=== PATIENT | female | born 1960 | race Caucasian/White ===

== ENCOUNTER 2020-11-18 10:31 | Outpatient (REF) | payer BC, SELFPAY ==
[2020-11-18 11:50] LABS: Hematocrit 41.6 % (37-47); Hemoglobin 13.8 g/dl (12.0-16.0); Mean Corpuscular HGB Conc 33.2 g/dl (31.0-35.0); Mean Corpuscular Hemoglobin 30.5 pg (27.0-33.0); Mean Platelet Volume 9.2 fL (9.4-12.3); Platelet Count 241 X10*3/uL (160-400); Red Blood Count 4.52 X10*6/uL (4.20-5.50); Red Cell Distribution Width 13.2 % (11.0-16.0)
[2020-11-18 11:59] LABS: White Blood Count 2.2 X10*3/uL (4.8-10.8)
[2020-11-18 12:14] LABS: Atypical Lymphs Percent Manual 2 % (0-6); Eosinophils Absolute Manual 0.1 X10*3/UL (0.0-0.8); Eosinophils Percent Manual 4 % (0-4); Lymphocytes Absolute Manual 1.3 X10*3/uL (0.6-4.8); Lymphocytes Percent Manual 59 % (20-40); Monocytes Absolute Manual 0.3 X10*3/uL (0.0-1.2); Monocytes Percent Manual 15 % (2-11); Neutrophils Percent Manual 20 % (45-73)
[2020-11-18 12:15] LABS: Platelet Estimate NORMAL (NORMAL); Platelet Morphology Comment NORMAL; RBC Morphology NOTED
[2020-11-18 12:16] LABS: Acanthocytes 1+ (0-2) /OIF; Ovalocytes 1+ (5-14) /OIF
[2020-11-18 12:26] LABS: Band Neutrophils Percent 0 % (3-5); Neutrophils Absolute Manual 0.4 X10*3/uL (2.2-7.9)
[2020-11-18 12:41] LABS: Erythrocyte Sedimentation Rate 30 MM/HR (0-20)
== END 2020-11-18 10:32 | disposition home or self-care (01) ==
LOC: HO.LAB 10:31
PROVIDERS: PCP Nurse Practitioner Family; Visit Provider Psychiatry & Neurology Neurology
DX: M79.10 Myalgia, unspecified site (principal)
CPT/HCPCS: 36415; 82550; 85007; 85025; 85027; 85652

== ENCOUNTER 2024-08-14 08:45 | Outpatient (RCR) | payer BC, SELFPAY | END 2024-10-16 14:54 | disposition home or self-care (01) | LOC: HO.OT 08:45 | PROVIDERS: PCP Nurse Practitioner Family; Visit Provider Physician Assistant Medical | DX: S52.531D Colles' fracture of right radius, subsequent encounter for closed fracture with routine healing (principal) | CPT/HCPCS: 97110; 97140; 97165; 97530 ==

== ENCOUNTER 2024-08-28 09:30 | Emergency (ER) | payer BC, SELFPAY ==
--- NOTE | ~2024-08-28 | CT_ITS ---
EXAMINATION: CT ANGIOGRAM HEAD AND NECK CLINICAL INFORMATION: Dizziness, sharp head pains, pulsatile tinnitus. 64-year-old female. COMPARISON: None available. TECHNIQUE: Noncontrast axial imaging of the head was performed. This was followed by test bolus sequences and head and neck intravenous bolus administration 70 mL of Omnipaque 350. Helical imaging was performed in the axial plane from the aortic arch to the skull vertex. A [address] head was also obtained. The data was processed at the chemical engineering technologist's workstation for generation of MIP sequences. Angled MIPs and volume rendered reformatted images were also generated at an offline 3D workstation. Stenoses are assessed in accordance with NASCET criteria unless otherwise indicated. This CT examination was performed using dose optimization techniques as appropriate, variously including the following: *Automated exposure control *Adjustment of mA and/or kV according to patient size (this includes techniques or standardized protocols for targeted exams where dose is matched to indication/reason for exam; i.e. extremities or head) *Use of iterative reconstruction technique FINDINGS: NONCONTRAST HEAD CT: There is no evidence of intracranial hemorrhage or extra-axial fluid collection. There is no mass effect, or edema. No CT evidence of acute territorial infarct. Ventricles, sulci, and cisterns are normal in size and configuration for patient age. No hydrocephalus. No midline shift. 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 Partial empty sella. Globes and orbital contents image normally. There are bilateral lens replacements. No extracranial soft tissue abnormalities. The paranasal sinuses, mastoid air cells, and tympanic cavities are normally aerated. No suspicious bony abnormalities. There are degenerative changes in the TM joints. NECK CTA: -AORTIC ARCH: Normal in caliber. Mild atheromatous calcification. Three-vessel branching pattern. -GREAT VESSEL ORIGINS: Widely patent. No stenosis. -RIGHT COMMON CAROTID ARTERY: Retropharyngeal course. Normal in caliber to the level of the bifurcation. -CERVICAL RIGHT INTERNAL CAROTID ARTERY: Retropharyngeal course proximally. Normal opacification without focal stenosis or occlusion. -LEFT COMMON CAROTID ARTERY: Normal in course and caliber to the level of the bifurcation. -CERVICAL LEFT INTERNAL CAROTID ARTERY: Normal opacification without focal stenosis or occlusion. -CERVICAL RIGHT VERTEBRAL ARTERY: Codominant. Normal in course and caliber into the skull base. -CERVICAL LEFT VERTEBRAL ARTERY: Codominant. Normal in course and caliber into the skull base. OTHER, SOFT TISSUES: -No lymphadenopathy or mass. No abnormal fluid collection or soft tissue swelling. -There is a 10 mm right thyroid nodule. No follow-up recommended. -Imaged superior mediastinal structures normal. -Imaged lung apices clear. CTA OF THE BRAIN: -INTRACRANIAL INTERNAL CAROTID ARTERIES: No focal stenosis or occlusion. -RIGHT ANTERIOR CEREBRAL ARTERY: Normal A1 segment.. Normal arborization of the distal segments. -LEFT ANTERIOR CEREBRAL ARTERY: Normal A1 segment.. Normal arborization of the distal segments. -ANTERIOR COMMUNICATING ARTERY: Normal. -RIGHT MIDDLE CEREBRAL ARTERY: Normal M1 segment of the MCA without focal stenosis or occlusion. Normal arborization of the distal segments. -LEFT MIDDLE CEREBRAL ARTERY: Normal M1 segment of the MCA without focal stenosis or occlusion. Normal arborization of the distal segments. -RIGHT VERTEBRAL ARTERY V4: Normal in course and caliber. -LEFT VERTEBRAL ARTERY V4: Normal in course and caliber. -BASILAR ARTERY: Normal without focal stenosis or occlusion. Normal appearance of the proximal superior cerebellar arteries. Normal basilar tip. -RIGHT POSTERIOR CEREBRAL ARTERY: Normal P1 segment. Normal opacification of the distal BERRY PLANTER segments. -LEFT POSTERIOR CEREBRAL ARTERY: Normal P1 segment. Normal opacification of the distal BERRY PLANTER segments. -POSTERIOR COMMUNICATING ARTERIES: Patent on the right. The left is not well seen. Normal opacification of the superior sagittal, straight, transverse, and sigmoid sinuses. No venous thrombosis. No space-occupying hemorrhage or definite evolving infarct. CT/CT angio head neck IMPRESSION: NONCONTRAST HEAD CT: 1. No evidence of intracranial hemorrhage or mass effect. No CT evidence of acute territorial infarct. CTA NECK: 1. No evidence of significant stenosis, dissection, occlusion, or aneurysm of the major cervical arterial vasculature. 2. Retropharyngeal course of the right distal CCA and proximal ICA. CTA HEAD: 1. No evidence of large vessel occlusion, significant stenosis, dissection, or aneurysm in the major intracranial arterial vasculature. 2. Patent major cortical and dural venous sinuses. Electronically signed by: Amandeep Velazco MD 08/28/2024 04:24 PM EDT
[2024-08-28 10:06] VITALS: BP 154/86; PULSE 76; RESP 20; TEMP 36.9; O2SAT 99; BMI 20.9
--- NOTE | 2024-08-28 13:34 | ED.HA ---
HPI - Headache General Chief Complaint: Headache Stated Complaint: Sharp pains in head Time Seen by Provider: 08/28/24 13:33 Source: patient, RN notes reviewed and old records reviewed Mode of arrival: ambulatory Limitations: no limitations History of Present Illness ED Provider: SARAH ANDRE PA-C HPI Narrative: 64-year-old female presents to the ED today for evaluation of intermittent left sided headache x2 weeks. Reports sharp, electric shock sensations, localized to the left side of her head that occur sporadically and last only a few seconds. she cannot determine any clear exacerbating or relieving factors. reports these shocks occur anywhere from 2-4 times daily and stop her in her tracks. She endorses associated pain/stiffness to left side of her neck. Reports her muscles feel tense in this region. She has been attributing this to carrying her 18 month old grandson more with her LUE due to recent surgery on her right wrist. Patient also reports history of tinnitus but recently has been able to hear her heartbeat in her ears when symptoms occur. She has trialed motrin without relief. Denies head injury/trauma/falls. Patient denies history of headache/migraine. Denies fever, chills, scalp tenderness, jaw claudication, nausea or vomiting. Denies blurred vision or photophobia. Reports having cataract surgery done 1.5 years ago but still has floaters and dry eyes. She takes low-dose gabapentin as needed at night for pudendal nerve pain. Related Data Previous Rx's ?Medication ?Instructions ?Recorded methocarbamol 1,000 mg tablet 1,000 mg PO TID PRN muscle spasm 3 08/28/24 days #9 tabs Allergies Allergy/AdvReac Type Severity Reaction Status Date / Time ciprofloxacin [Ciprofloxacin] Allergy Mild RASH Unverified 08/28/24 10:06 clindamycin [Clindamycin] Allergy Mild UNKNOWN Unverified 08/28/24 10:06 erythromycin base Allergy Mild RASH Unverified 08/28/24 10:06 [From Erythrocin] levofloxacin [Levofloxacin] Allergy Mild RASH Unverified 08/28/24 10:06 Penicillins Allergy Mild RASH Unverified 08/28/24 10:06 Sulfa (Sulfonamide Allergy Mild RASH Unverified 08/28/24 10:06 Antibiotics) [Sulfa (Sulfonamides)] sulfamethoxazole Allergy Mild RASH Unverified 08/28/24 10:06 [From Bactrim] trimethoprim [From Bactrim] Allergy Mild RASH Unverified 08/28/24 10:06 trovafloxacin [From Trovan] Allergy Mild RASH Unverified 08/28/24 10:06 valacyclovir [From VALTREX] Allergy Unknown RASH Unverified 08/28/24 10:06 Cephalosporins Allergy Unknown Verified 08/28/24 17:13 pseudoephedrine Allergy Anaphylaxis Verified 08/28/24 17:13 tramadol [From Ultram] Allergy Anaphylaxis Verified 08/28/24 17:12 vancomycin Allergy Hives Verified 08/28/24 17:12 hydromorphone [From Dilaudid] AdvReac Anaphylaxis Verified 08/28/24 10:07 morphine AdvReac Anaphylaxis Verified 08/28/24 10:07 Review of Systems Review of Systems: Constitutional: No fever, chills, fatigue, night sweats, weight changes ENT/Mouth: +Tinnitus. No ear pain, hearing loss, nasal congestion, sinus pain, rhinorrhea, sore throat Eyes: No eye pain, swelling, redness, vision changes, discharge, photophobia Cardio: No chest pain, palpitations, FULLER, orthopnea, peripheral edema Pulm: No SOB, cough, sputum, wheezing, dyspnea, hemoptysis GI: No nausea, vomiting, hematemesis, abdominal pain, diarrhea, constipation, hematochezia, melena : No irregular bleeding, dysuria, frequency, urgency, hesitancy, hematuria, flank pain, urinary flow changes, urinary incontinence or retention MSK: No back pain, neck pain, joint pain, myalgias Skin: No lesions, rashes Neuro: No weakness, numbness, paresthesias, LOC, dizziness, +headache Psych: No anxiety/panic, depression, SI/HI, AH/VH All other systems reviewed and are negative. Yes all other systems are reviewed and are negative [facility] Past Medical History Attestation statement: The following information was validated with the patient. Source: old records reviewed and nursing notes reviewed Physical Exam Vital Signs: Vital Signs: Last Vital Signs Temp 97.3 F 08/28/24 18:07 Pulse 73 08/28/24 18:07 Resp 16 08/28/24 18:07 BP 133/91 H 08/28/24 18:07 Pulse Ox 98 08/28/24 18:07 O2 Del Method Room Air 08/28/24 18:07 BMI result Body Mass Index 20.9 hypertensive, afebrile General: Well appearing, in no acute distress. Skin: Warm, dry, intact. No rashes or lesions. Head: Normocephalic, atraumatic. no scalp tenderness, no palpable temporal aa. no ttp along distribution of facial nerve. EENT: Hearing is intact b/l. Conjunctiva clear. PERRLA. EOM intact w/o entrapment. Moist mucous membranes.? Neck: Supple without LAD. Cardiac: Chest wall symmetric. RRR. Lungs: Normal respiratory effort without accessory muscle use. CTA bilaterally. ? Ext: Upper and lower extremities atraumatic, without tenderness, deformity, swelling or erythema. Neuro: AOx3. Normal speech. NIH 0. no facial droop, slurred speech, or pronator drift. finger to nose and heel to walker intact. ambulating with steady gait. Course Course Course Narrative: CBC showing leukopenia to 1.9 - appears to be around patient's baseline. lymphocytosis to 59.5. chemistry without acute electrolyte abnormality requiring intervention. ESR chronically elevated. CRP wnl. EKG showing NSR without ischemic changes. CT/CTA head/neck unremarkable. > I discussed all work up results with patient. she tells me she has a history of low leukocytes and high lymphocytes . reports leukocytosis around 1-2 at baseline. has had 3 bone marrow biopsies in the past with negative work up. > patient declining migraine cocktail at this time. agreeable to trial of valium -- suspicion for possible cervical muscle spasm etiology given unremarkable work up. patient agreeable to 5mg PO valium > reporting improvement in discomfort. > at this time, I feel comfortable discharging patient home w/ trial of muscle relaxers. advised neuro follow up for possible EEG. at this time, etiology of shock like pain is unclear. the picture does not seem to fit trigeminal neuralgia as pain does not appear to be along the facial nerve. unlikely GCA. I do not feel MRI brain is warranted as cerebellar exam is benign. no concern for infarct. neuro referral provided. both patient and her are agreeable with this. advised patient to refrain from driving until follow up as these episodes occur sporadically. Patient has remained stable throughout ED visit today. Discussed worrisome signs and symptoms and when to return to the ED. All questions answered at this time. Patient is agreeable with disposition and stable for discharge. Medications Administered Discontinued Medications Generic Name Dose Route Start Last Admin Trade Name Navya PRN Reason Stop Dose Admin Diazepam 5 mg 08/28/24 16:45 08/28/24 17:09 Diazepam 5 Mg Tablet PO 08/28/24 16:46 5 mg ONCE ONE Administration Medical Decision Making Medical Decision Making [facility] Narrative: 64-year-old female presents to the ED today for evaluation of intermittent left sided headache x2 weeks. Differential diagnosis includes anemia, electrolyte abnormality, dehydration, viral syndrome, migraine vs tension type headache, trigeminal neuralgia, occipital neuralgia, cervical muscle spasm. No headache red flags. Neurologic exam without evidence of meningismus. No focal neurologic findings. Presentation not consistent with acute intracranial bleed including SAH. Presentation not consistent with acute UNIVERSAL GRINDER SET UP OPERATOR infection including meningitis or brain abscess. Temporal arteritis unlikely, as is acute angle closure glaucoma given history and physical findings. Presentation not consistent with other acute, emergent causes of headache at this time. No indication for LP at this time. Plan: labs, pain control, CTA head/neck, reassessment Differential Diagnosis Differential Diagnoses: The differential diagnosis associated with the presentation includes As above Admission/Observation Not indicated Lab Data [facility] Lab Attestation statement: I reviewed the patient's lab results. As above 08/28/24 14:30 08/28/24 14:30 Labs: Lab Results 08/28/24 Range/Units 14:30 WBC 1.9 L (4.8-10.8) X10*3/uL RBC 4.77 (4.20-5.50) X10*6/uL Hgb 14.6 (12.0-16.0) g/dl Hct 43.2 (37.0-47.0) % MCV 90.6 (80.0-98.0) fL MCH 30.6 (27.0-33.0) pg MCHC 33.8 (31.0-35.0) g/dl RDW 13.1 (11.0-16.0) % Plt Count 237 (160-400) X10*3/uL MPV 8.6 L (9.4-12.3) fL Immature Gran % (Auto) 0.0 (0.0-0.4) % Neut % (Auto) 18.9 L (45-73) % Lymph % (Auto) 59.5 H (20-40) % Hawkins % (Auto) 20.5 H (2-11) % Eos % (Auto) 0.0 (0-4) % Baso % (Auto) 1.1 (0-2) % Lymph # (Auto) 1.1 L (1.2-4.9) X10*3/uL Hawkins # (Auto) 0.4 (0.1-1.2) X10*3/uL Eos # (Auto) 0.0 (0.0-0.4) X10*3/uL Baso # (Auto) 0.0 (0.0-0.2) X10*3/uL Abs Immat Gran (auto) 0.00 (0.00-0.03) X10*3/uL Absolute Neuts (auto) 0.4 L (2.0-8.3) x10*3/uL Absolute Nucleated RBC 0.000 (0.0-0.012) X10*3/uL Nucleated RBC % (auto) 0.0 (0.0-0.2) /100WBC Smear Tech's Comments VERIFIED ESR 22 H (0-20) MM/HR Sodium 141 (135-145) mmol/L Potassium 3.8 (3.3-5.1) mmol/L Chloride 107 (96-108) mmol/L Carbon Dioxide 25 (22-29) mmol/L Anion Gap 13 (12-20) BUN 15 (9-16) mg/dL Creatinine 0.63 (0.5-1.4) mg/dL Estim Creat Clear Calc 77.9 Estimated GFR > 60 Random Glucose 85 (60-115) mg/dL Calcium 9.7 (8.4-10.2) mg/dL Magnesium 2.3 (1.6-2.6) mg/dL Total Bilirubin 0.7 (0.0-1.0) mg/dL AST 48 H (5-31) U/L ALT 18 (0-31) U/L Alkaline Phosphatase 82 (39-117) U/L C-Reactive Protein 0.17 (< or = 0.50) mg/dL Total Protein 8.3 H (6.5-8.0) g/dL Albumin 4.5 (3.5-5.0) g/dL Independent Interpretation I performed an independent interpretation of an: EKG and CT Scan Interpretation: CT/ CTA head and neck without intracranial bleed or obvious vessel occlusion ekg showing NSR with rate of 65 bpm, no acute ischemic changes or st elevations Radiology Impression Discussion of test interpretation with radiology: I have reviewed the radiologist's reading. Radiologist Impression: Procedure(s): CT angio head neck Accession Number(s): [id number] cc: Ruth Lynch CLOTH TRIMMER HAND; Sarah Andre~ Report Number: [id number]: Total DLP = 1427.00 mGy-cm EXAMINATION: CT ANGIOGRAM HEAD AND NECK CLINICAL INFORMATION: Dizziness, sharp head pains, pulsatile tinnitus. 64-year-old female. COMPARISON: None available. TECHNIQUE: Noncontrast axial imaging of the head was performed. This was followed by test bolus sequences and head and neck intravenous bolus administration 70 mL of Omnipaque 350. Helical imaging was performed in the axial plane from the aortic arch to the skull vertex. A [address] head was also obtained. The data was processed at the histologist technologist's workstation for generation of MIP sequences. Angled MIPs and volume rendered reformatted images were also generated at an offline 3D workstation. Stenoses are assessed in accordance with NASCET criteria unless otherwise indicated. This CT examination was performed using dose optimization techniques as appropriate, variously including the following: *Automated exposure control *Adjustment of mA and/or kV according to patient size (this includes techniques or standardized protocols for targeted exams where dose is matched to indication/reason for exam; i.e. extremities or head) *Use of iterative reconstruction technique FINDINGS: NONCONTRAST HEAD CT: There is no evidence of intracranial hemorrhage or extra-axial fluid collection. There is no mass effect, or edema. No CT evidence of acute territorial infarct. Ventricles, sulci, and cisterns are normal in size and configuration for patient age. No hydrocephalus. No midline shift. 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 Partial empty sella. Globes and orbital contents image normally. There are bilateral lens replacements. No extracranial soft tissue abnormalities. The paranasal sinuses, mastoid air cells, and tympanic cavities are normally aerated. No suspicious bony abnormalities. There are degenerative changes in the TM joints. NECK CTA: -AORTIC ARCH: Normal in caliber. Mild atheromatous calcification. Three-vessel branching pattern. -GREAT VESSEL ORIGINS: Widely patent. No stenosis. -RIGHT COMMON CAROTID ARTERY: Retropharyngeal course. Normal in caliber to the level of the bifurcation. -CERVICAL RIGHT INTERNAL CAROTID ARTERY: Retropharyngeal course proximally. Normal opacification without focal stenosis or occlusion. -LEFT COMMON CAROTID ARTERY: Normal in course and caliber to the level of the bifurcation. -CERVICAL LEFT INTERNAL CAROTID ARTERY: Normal opacification without focal stenosis or occlusion. -CERVICAL RIGHT VERTEBRAL ARTERY: Codominant. Normal in course and caliber into the skull base. -CERVICAL LEFT VERTEBRAL ARTERY: Codominant. Normal in course and caliber into the skull base. OTHER, SOFT TISSUES: -No lymphadenopathy or mass. No abnormal fluid collection or soft tissue swelling. -There is a 10 mm right thyroid nodule. No follow-up recommended. -Imaged superior mediastinal structures normal. -Imaged lung apices clear. CTA OF THE BRAIN: -INTRACRANIAL INTERNAL CAROTID ARTERIES: No focal stenosis or occlusion. -RIGHT ANTERIOR CEREBRAL ARTERY: Normal A1 segment.. Normal arborization of the distal segments. -LEFT ANTERIOR CEREBRAL ARTERY: Normal A1 segment.. Normal arborization of the distal segments. -ANTERIOR COMMUNICATING ARTERY: Normal. -RIGHT MIDDLE CEREBRAL ARTERY: Normal M1 segment of the MCA without focal stenosis or occlusion. Normal arborization of the distal segments. -LEFT MIDDLE CEREBRAL ARTERY: Normal M1 segment of the MCA without focal stenosis or occlusion. Normal arborization of the distal segments. -RIGHT VERTEBRAL ARTERY V4: Normal in course and caliber. -LEFT VERTEBRAL ARTERY V4: Normal in course and caliber. -BASILAR ARTERY: Normal without focal stenosis or occlusion. Normal appearance of the proximal superior cerebellar arteries. Normal basilar tip. -RIGHT POSTERIOR CEREBRAL ARTERY: Normal P1 segment. Normal opacification of the distal CURING FINISHER segments. -LEFT POSTERIOR CEREBRAL ARTERY: Normal P1 segment. Normal opacification of the distal CURING FINISHER segments. -POSTERIOR COMMUNICATING ARTERIES: Patent on the right. The left is not well seen. Normal opacification of the superior sagittal, straight, transverse, and sigmoid sinuses. No venous thrombosis. No space-occupying hemorrhage or definite evolving infarct. CT/CT angio head neck IMPRESSION: NONCONTRAST HEAD CT: 1. No evidence of intracranial hemorrhage or mass effect. No CT evidence of acute territorial infarct. CTA NECK: 1. No evidence of significant stenosis, dissection, occlusion, or aneurysm of the major cervical arterial vasculature. 2. Retropharyngeal course of the right distal CCA and proximal ICA. CTA HEAD: 1. No evidence of large vessel occlusion, significant stenosis, dissection, or aneurysm in the major intracranial arterial vasculature. 2. Patent major cortical and dural venous sinuses. Independent Historian Clinical information obtained from an independent historian. History obtained from or confirmed by: Spouse () External Record Review External record reviewed: Inpatient record and Office record Prescription Management I considered prescription management with: Other (methocarbamol) Social Determinants Patient?s care significantly limited by Social Determinants of Health including: Other Social Determinant of Health Critical Care Time Critical Care Time Critical Care Time: No Discharge Plan Discharge Clinical Impression: Headache Patient Disposition: Home, Self-Care Instructions: Acute Headache (ED) Additional Instructions: Your workup today is reassuring. The CT scan of your head/neck is normal. As discussed, it is unclear at this time what is causing your symptoms however workup is reassuring. I am sending methocarbamol (muscle relaxer) to your pharmacy for you to trial over the next few days. You may take this up to 3 times a day. I also recommend you follow up with a neurologist. I have provided you with a referral. Call them to establish care. They will not call you. I would recommend that you refrain from driving until you are able to follow up with Neurology. Return with any new or worsening symptoms. In the case of an emergency call 911. Prescriptions: New methocarbamol 1,000 mg tablet 1,000 mg PO TID PRN (Reason: muscle spasm) 3 Days Qty: 9 0RF Referrals: [facility] Neuro/Sleep [Provider Group] Ruth Lynch NP [Primary Care Provider] - Interventions: ED Discharge Assessment Last Done: 08/28/24 18:07 Discharge Date/Time: 08/28/24 18:11 Print Language: Faroese
--- NOTE | 2024-08-28 13:48 | ECG_ITS ---
Test Reason : DIZZINESS Blood Pressure : */* mmHG Vent. Rate : 65 BPM Atrial Rate : 65 BPM P-R Int : 144 ms QRS Dur : 80 ms QT Int : 420 ms P-R-T Axes : 54 -2 32 degrees QTcB Int : 436 ms Normal sinus rhythm Normal ECG No previous ECGs available Referred By: Sarah Andre Electronically Signed By: JOCE AGEE
--- OUTSIDE RECORDS SUMMARY | 2024-08-28 14:19 | XMS_ITS | Referral Summary ---
Author Organization [facility] Address [address] [place] [address] Care Team Providers Care Violin Teacher Name Role Phone Ruth Lynch Primary Care Provider [phone] Allergies Active Allergy Reactions Criticality Noted Date Comments Cephalosporins Hives,Rash 11/23/2012 Ibuprofen Unknown 08/30/2018 Levofloxacin Unknown 06/21/2018 Morphine Anaphylaxis,Dyspnea High 11/23/2012 Penicillins Hives,Rash 11/23/2012 Pseudoephedrine Unknown 06/21/2018 Sulfa (Sulfonamide Antibiotics) Hives 08/04/2012 Sulfur Hives,Rash 10/20/2021 Valacyclovir Unknown 06/21/2018 Vancomycin Hives,Rash 11/23/2012 Medications zolpidem (AMBIEN) 10 mg tablet Take 10 mg by mouth nightly as needed. Active LORazepam (ATIVAN) 0.5 mg tablet Take 0.5 mg by mouth every 6 hours as needed. Active ascorbic acid (VITAMIN C) 500 mg tablet Take 500 mg by mouth once a day. Per pt take 500 mg twice a day Active CYANOCOBALAMIN, VITAMIN B-12, ORAL Take by mouth. Activ e gabapentin (NEURONTIN) 300 mg capsuleIndicati ons:Pain in both thighs,Neuropat hy Take 1 capsule (300 mg total) by mouth every night. You can increase the dose to 300 mg (2 tablets) twice daily per tolerance and effectiveness. 60 capsule 2 2 Active Active Problems Problem Noted Date Diagnosed Date Neuropathy 10/20/2021 Right leg pain 10/20/2021 Pain in both thighs 04/03/2021 Cramp of limb 04/03/2021 Fibromyalgia 04/03/2021 Social History Tobacco Use Types Packs/Day Years Used Date Smoking Tobacco: Former Smokeless Tobacco: Former Alcohol Use Standard Drinks/Week Comments Yes 1 (1 standard drink = 0.6 oz pur e alcohol) Comments Unknown Sex and Gender Information Value Date Recorded Sex Assigned at Female 04/03/2021 8:22 AM EST Legal Sex Female 4:36 PM EST Gender Identity Female 04/03/2021 8:22 AM EST Sexual Orientation Straight 04/03/2021 8: 22 AM EST Last Filed Vital Signs Vital Sign Reading Time Taken Comments Blood Pressure 135/81 04/03/2021 2:19 PM EST Pulse 71 04/03/2021 2:19 PM EST Temperature 36.1 ??C (97 ??F) 04/03/2021 2:19 PM EST Respiratory Rate 18 04/03/2021 2:19 PM EST Oxygen Saturation - - Inhaled Oxygen Concentration - - Weight 56.7 kg (125 lb) 10/20/2021 3:20 PM EDT Height 162.6 cm (5' 4 ) 04/03/2021 2:19 PM EST Body Mass Index 21.46 04/03/2021 2:19 PM EST Plan of Treatment Not on file Insurance [facility] HMO/POS Care Teams Violin Teacher Relationship Specialty Start Date End Date Ruth Lynch [address] [place] [address] [facility] - General 07/14/21
--- OUTSIDE RECORDS SUMMARY | 2024-08-28 14:19 | XMS_ITS | Clinical Summary ---
Author Organization [facility] Address [address] [place] [address] Care Team Providers Care Ambulatory Services Representative Name Role Phone Ruth Lynch Primary Care Provider [phone] Allergies Active Allergy Reactions Criticality Noted Date [...] 04/03/2021 2:19 PM EST Plan of Treatment Health Maintenance Due Date Last Done Comments Cervical Cancer Screening 1960 Cologuard 1960 Colon Cancer Screening 1960 Colonoscopy 1960 FOBT / Fit Test 1960 HIV Screening 1960 HPV and Pap Smear 1960 Pap Smear 1960 Sigmoidoscopy 1960 Pneumococcal Vaccine: 50+ Years (2 of 2 - PCV) 02/11/2010 05/31/2007 Zoster Vaccines (1 of 2) 02/11/2010 COVID-19 Vaccine ( season) 2023 04/05/2021, 08/14/2020, 07/16/2020 Alcohol/Substance Use Screening 04/25/2024 Influenza Vaccine (Season Ended) 2024 02/23/2021, 02/02/2020, 05/03/2019, Additional history exists DTaP,Tdap,and Td Vaccines (2 - Tdap) 06/14/2027 06/14/2017 RSV Vaccine (60+ years old and patients) (1 - 1-dose 75+ series) 02/11/2035 Hepatitis B Vaccines Aged Out No long er eligible based on patient's age to complete this topic Insurance [facility] HMO/POS Care Teams Ambulatory Services Representative Relationship Specialty Start Date End Date Ruth Lynch [address] [place] [id number] PCP - General 07/14/21
--- OUTSIDE RECORDS SUMMARY | 2024-08-28 14:19 | XMS_ITS | Data Portability ---
Author Organization [place] - [facility], Allergy Address [address] [place] [address] Care Team Providers Care Shank Sorter Name Role Phone DIETER OZUNA Primary Care Provider [phone] DANNA QUEVEDO Referring Provider Assessment Encounter Date Assessment Date Assessment LastModified by Organization Details LastModified Time 05/17/2024 05/17/2024 64-year-old female with asymmetric hearing loss and negative MRI for retrocochlear pathology presents for reevaluation of the ears. On exam, bilateral tympanic membranes are intact with well aerated middle ear spaces. Audiometric testing demonstrated an essentially stable moderately-sever e low-frequency sensorineural hearing loss rising to normal on the right and normal with the exception of a mild sensorineural hearing loss at 8000 Hz on the left. We will continue to observe and plan for yearly audiometric testing. For pruritus of the ears, she may use a few drops of warm olive oil or mineral oil PRN. She will follow-up sooner with any concerns. Patient with concerns about crusting of the nasal cavity and nasal congestion. Exam today without polyps or purulence. No lesions or ulcerations were noted in the anterior nasal cavity bilaterally. Recommended hydration of the nasal mucosa with saline nasal spray 4-6 times daily and a water-based lubricant such as [place] intranasally 2-3 times daily. Also recommended avoidance of nose picking. She will follow-up if symptoms persist or worsen. May consider nasal endoscopy and CT sinus. [email or web address] Not available 05/17/2024 12:55:14 Plan of Treatment Reminders Order Date Submit Date Provider Last Modified By Organization Details Last Modified Time Details Appointments None record ed. Lab None record ed. Referral None record ed. Procedures None record ed. Surgeries None record ed. Imaging None record ed. Medication Orders None record ed. Patient TargetsNo targets recorded. Patient InstructionsNo instructions recorded. Reason for Referral None Reported. Results Created Date Observation Date Name Description Value Unit Range Abnormal Flag Note LastModifiedBy Organization Detail LastModifiedTime 05/17/19 audio gram No observ ation record ed. BARCODE Not Available 2024 14:06:41 Result Notes None recorded. Problems Name Problem SNOMED Code Status Onset Date Resolution Date Notes Provider Name and Address Organization Details Recorded Time Bilatera l temporom andibula r joint pain 77545065835 434363 Active 2019 Arthralg ia of bilatera l temporom andibula r joint; Note: Date Diagnose d: 0 10:00 AM (M26.623 ) Not Available [facility] 4 03:08:08 Diffuse otitis externa 88134937 Completed 201811/25/2023 Diffuse otitis externa, right ear; Note: Date Diagnose d: 9 3:06 PM (H60.311 ) Not Available [facility] 4 03:08:10 Tinnitus of right ear 35522804187 08 Active 2018 Tinnitus , right ear; Note: Date Diagnose d: 9 5:28 PM (H93.11) Not Available [facility] 4 03:08:10 Refracto ry migraine 779713018 Active 2018 Other migraine , intracta ble, without status migraino cem; Note: Date Diagnose d: 9 12:21 PM (G43.819 ) Not Available [facility] 4 03:08:08 Abnormal auditory percepti on 46657574 Active 2018 Other abnormal auditory percepti ons, right ear; Note: Date Diagnose d: 08/28/2018 4:55 PM (H93.291 ) Other abnormal auditory percepti ons, left ear; Note: Date Diagnose d: 08/28/2018 5:32 PM (H93.292 ) Not Available [facility] 4 03:08:08 Headache 87210658 Active 2018 Facial pain NOS; Note: Date Diagnose d: 05/29/2018 3:15 PM (R51) Not Available [facility] 4 03:08:09 Acute serous otitis media of right ear 11524054338 80639 Completed 201811/25/2023 Acute serous otitis media, right ear; Note: Date Diagnose d: 9 3:06 PM (H65.01) Acute serous otitis media, right ear; Note: Date Diagnose d: 04/17/20 18 9:12 AM (H65.01) ; Start Date : 04/17/20 18 Not Available [facility] 4 03:08:09 Otalgia of right ear 0203109934 Active 2017 Otalgia, right ear; Note: Date Diagnose d: 04/21/20 18 3:45 PM (H92.01) Not Available [facility] 4 03:08:09 Acute sinusiti s 21583601 Active 2017 Other acute sinusiti s; Note: Date Diagnose d: 04/17/20 18 9:17 AM (J01.80) Not Available [facility] 4 03:08:10 Mixed conducti ve and sensorin eural hearing loss of right ear 65253850066 105 Active 2018 Mixed conducti ve and sensorin eural hearing loss, unilater al, right ear, with unrestri cted hearing on the contrala teral side; Note: Date Diagnose d: 04/05/20 19 1:04 PM (H90.71) Mixed conducti ve and sensorin eural hearing loss, unilater al, right ear, with unrestri cted hearing on the contrala teral side; Note: Date Diagnose d: 9 5:28 PM (H90.71) ; Start Date : 05/08/19 Not Available [facility] 4 03:08:09 Sensorin eural hearing loss of bilatera l ears 644155340 Active 2024 ERIN CAMARILLO, [facility] [address] [address], [facility] [place], [address] , [facility] - [facility] 5 11:47:13 Nasal congesti on 42949465 Active 2024 OVIDIO ARCHULETA PA-C [address], [place], [address] , [facility] - [facility] 12:46:36 Disorder of nasal cavity 584517032 Active 2024 OVIDIO ARCHULETA PA-C [address], [facility] [place], [address] , [facility] - [facility] 12:46:43 Bilatera l tinnitus 92988936756 02 Active 2024 OVIDIO ARCHULETA PA-C [address], [facility] [place], [address] , [facility] - [facility] 12:53:36 Problem Notes None recorded. Procedures Surgical History Date Name Laterality Status Provider Name and Address Organization Details Recorded Time 05/17/2024 Comp Audio with Tymps - 55349 & 54131 completed SEVEN RICHARD [address] [facility] [address], [place], [address], [facility] 05/17/2024 11:46:42 Imaging Results Imaging Date Name Status LastModified by Organiz ation Details LastModified Time 05/17/2024 audiogram completed BARCODE Information no t available 05/17/2024 14:06:41 Procedure Notes None recorded. Medical Equipment None Reported. Allergies Allergen ID Allergen Name Allergen Category Reaction Reaction Severity Criticality Documentation Date Start Date Code Code System Note Provider Name and Address Organization Details Recorded Time 54847 Ultram medicatio n other Not available Not available 09/06/202383173 6 RxNorm React ion: unkno wn, unspe cifie d;; Not Available [facility] 4 00:59:31 31726 Sudafed medicatio n other Not available Not available 09/06/202339958 2 RxNorm React ion: unkno wn, unspe cifie d;; Not Available [facility] 4 00:59:31 56315 Ceftin medicatio n other Not available Not available 09/06/202356323 6 RxNorm React ion: unkno wn, unspe cifie d;; Not Available [facility] 4 00:59:32 89551 vancomyci n medicatio n other Not available Not available 09/06/2023 29050 RxNorm React ion: unkno wn, unspe cifie d;; Not Available [facility] 4 00:59:33 84615 Medicinal product containin g cephalosp luz maria and acting as antibacte rial agent (product) medicatio n other Not available Not available 09/06/2023 96011 9009 SNOMED React ion: unkno wn, unspe cifie d;; Not Available [facility] 4 00:59:33 10229 Valtrex medicatio n other Not available Not available 09/06/2023 38391 0 RxNorm React ion: unkno wn, unspe cifie d;; Not Available [facility] 4 00:59:35 96156 Motrin medicatio n other Not available Not available 09/06/2023 55302 8 RxNorm React ion: unkno wn, unspe cifie d;; Not Available [facility] 4 00:59:36 94996 Substance with sulfonami de structure and antibacte rial mechanism of action (substanc e) medicatio n other Not available Not available 09/06/2023 57737 8003 SNOMED React ion: unkno wn, unspe cifie d;; Not Available [facility] 4 00:59:37 73502 levofloxa nini medicatio n other Not available Not available 09/06/2023 98444 RxNorm React ion: unkno wn, unspe cifie d;; Not Available [facility] 4 00:59:39 55585 Trovan medicatio n other Not available Not available 09/06/2023 47223 6 RxNorm React ion: unkno wn, unspe cifie d;; Not Available [facility] 4 00:59:41 28224 morphine medicatio n other Not available Not available 09/06/2023 7052 RxNorm React ion: unkno wn, unspe cifie d;; Not Available [facility] 4 00:59:43 99846 Product containin g penicilli n (product) medicatio n hives Not available Not available 09/06/2023 57378 8001 SNOMED React ion: skin rashe s, hives ;; Not Available [facility] 4 00:59:45 Medications Name Sig Start Date Stop Date Status Note LastModified by Organization Details LastModified Time prednison e 10 mg tablet 04/27 completed Medicati on ID: [id number] P rescribe d By Name: LOREN Jauregui nd Name: predniso ne Send Method: E-Prescr ibed Sub s Allowed: subs OK Speci al Instruct ion: Take 6 tabs PO QD X 9 days, then 5 tabs PO QD day 10, 4 tabs day 11, 3 tabs day 12, 2 tabs day 13 and 1 tab day 14 Medic ationGen ericName : predniso ne Not Available Not Available Not Available doxycycli ne hyclate 100 mg capsule 08/10 completed Medicati on ID: [id number] P rescribe d By Name: Huseyin chou MD Brand Name: doxycycl ine hyclate Send Method: E-Prescr ibed Sub s Allowed: subs OK Speci al Instruct ion: Take 1 PO bid X 2 weeks Me dication GenericN raquel: doxycycl ine hyclate Not Available Not Available Not Available ofloxacin 0.3 % ear drops 4 drop into both ears 05/17 completed Medicati on ID: [id number] D uration Value: 3 Prescri bed By Name: Huseyin chou MD Brand Name: ofloxaci n Send Method: E-Prescr ibed Sub s Allowed: subs OK Medic ationGen ericName : ofloxaci n Not Available Not Available Not Available lorazepam 0.5 mg tablet TAKE ONE TABLET BY MOUTH EVERY DAY active Not Available Not Available No t Available amitripty line 10 mg tablet Take 2 tablet by mouth at bedtime 2019 active Medicati on ID: [id number] P rescribe d By Name: Dee Dee Mills nd Name: amitript yline Se nd Method: E-Prescr ibed Sub s Allowed: subs OK Medic ationGen ericName : amitript yline Not Available Not Available Not Available nortripty line 10 mg capsule 1 capsule by mouth 06/12 completed Medicati on ID: [id number] P rescribe d By Name: Dee Dee Mills nd Name: nortript yline Se nd Method: E-Prescr ibed Sub s Allowed: subs OK Medic ationGen ericName : nortript yline Not Available Not Available Not Available zolpidem 5 mg tablet 05/17 completed Medicati on ID: [id number] D uration Value: 30 Brand Name: zolpidem Send Method: E-Prescr ibed Sub s Allowed: subs OK Speci al Instruct ion: TAKE 1 TABLET BY MOUTH AT BEDTIME Medicati onGeneri cName: zolpidem Not Available Not Available Not Available gabapenti n 100 mg capsule TAKE ONE CAPSULE BY MOUTH THREE TIMES A DAY active Not Available Not Available No t Available estradiol 0.01% (0.1 mg/gram) vaginal cream INSERT 1 GRAM VAGINALL Y TWO TIMES PER WEEK AT NIGHT active Not Available Not Available No t Available zolpidem 10 mg tablet TAKE ONE TABLET BY MOUTH DAILY AT BEDTIME NEEDED FOR INSOMNIA active Not Available Not Available No t Available TobraDex 0.3 %-0.1 % eye drops,cem pension 06/12 completed Medicati on ID: [id number] P rescribe d By Name: LOREN Jauregui nd Name: TobraDex Send Method: E-Prescr ibed Sub s Allowed: subs OK Speci al Instruct ion: 4 drops into affected ear BID X 14 days Med icationG enericNa me: TobraDex Not Available Not Available Not Available Ciprodex 0.3 %-0.1 % ear drops,cem pension 4 drop 05/17 completed Medicati on ID: [id number] D uration Value: 14 Prescri bed By Name: Cyndy archibald MD Brand Name: Ciprodex Send Method: E-Prescr ibed Sub s Allowed: subs OK Medic ationGen ericName : Ciprodex Not Available Not Available Not Available chlorhexi dine gluconate 0.12 % mouthwash SWISH AND SPIT 15 ML BY MOUTH FOR 30 SECONDS TWICE A DAY 05/17 completed Not Available Not Available Not Available GaviLyte- G 236 gram-22.7 4 gram-6.74 gram-5.86 gram oral solution TAKE 8 OUNCE BY MOUTH DIRECTED 05/17 completed Not Available Not Available Not Available Vitals None Recorded Social History None recorded. Functional Status None recorded. Mental Status None recorded. Family History Nothing Reported. Medical History No medical history recorded. Gynecological HistoryNo gynecological history recorded. Obstetrics History GPAL:G 0 P 0 0 0 0 Past Encounters Encounter ID Performer Location Encounter Start Date Encounter Closed Date Diagnosis/Indication Diagnosis SNOMED-CT Code Diagnosis ICD10 Code Diagnosis Note [id number] OVIDIO ARCHULETA PA-C [facility] [address] [address] 05/17/2024 11:05:16 05/17/2024 12:14:31 Sensorineural hearing loss of bilateral ears [id number] H90.3 Audiologic al evaluation results: Right ear: {{Normal N ormal through 2 kHz Mild M oderate Mo derately-s evere Blaire re Profoun d Moderate ly-severe low freqeuncy SNHL rising to#}} {{hearing hearing. s loping to a mild slopi ng to a moderate s loping to moderately severe slo ping to severe slo ping to profound f lat high frequency low frequency mid frequency cookie bite swan curve normal hearing#}} {{with* se nsorineura l hearing loss with condu ctive hearing loss with mixed hearing loss with}} {{excellen t* good fa ir poor no measurable }} word recognitio n. Left ear: {{Normal* Normal through 2 kHz Mild M oderate Mo derately-s evere Blaire re Profoun d}} {{hearing hearing. s loping to a mild slopi ng to a moderate s loping to moderately severe slo ping to severe slo ping to profound f lat high frequency low frequency mid frequency cookie bite swan curve with the exception of a mild SNHL at 8000Hz#}} {{with* se nsorineura l hearing loss with condu ctive hearing loss with mixed hearing loss with}} {{excellen t* good fa ir poor no measurable }} word recognitio n. Tympanomet ry: Right Ear:{{Type A Type As* Type Ad Type C Type C, shallow & rounded Ty pe B Type B with large volume Cou ld not maintain a hermetic seal}} Left Ear:{{Type A* Type As Type Ad Type C Type C, shallow & rounded Ty pe B Type B with large volume Cou ld not maintain a hermetic seal}} Nasal congestion 5186383 0 R09.81 Disorder o f nasal cavity 191996264 J34.89 Bilateral tinnitus 51151 80593 102 H93.13 Health Concerns Section Related Observation LastModified by Organization Detai ls LastModified Time None Recorded Concern Status LastModified by Organization Details LastModified Time None Recorded Advance Directives Directive None Recorded Payers Encounter Date Sequence Insurance Name Policy Number Policy Hollingsworth Covered Member ID Hollingsworth Member ID Guarantor Name 05/17/2024 1 [place] [facility] [place] [place] [id number] Rashmi Cardenas [id number] Rashmi Cardenas Notes Date Note Type Note Provider Name and Address Organization Details Recorded Time 05/17/2024 text/html 64 year old cherelle messina with history of right-sided sensorineural hearing loss presents for reevaluation of the ears. Previously evaluated for migraine and chronic right ear blockage, last seen in 2019. MRI of the IACs in 04/28/2019 was negative for retrocochlear pathology. History of myringotomy in 2017 and right-sided tympanostomy tube in April 2018. She presents today to reestablish care. Reports chronic bilateral tinnitus that is worse since her last visit. Continues to have chronic right ear blockage and hyperacusis. Admits to intermittent ear itching bilaterally. Denies vertigo, otalgia, otorrhea, or change in her hearing. Patient also with concerns about crusting in the left nasal cavity. She reports every morning for the past few months, she has removed a dried crust sometimes discolored and other times bloody from the left anterior nasal passage. Denies epistaxis. Notes intermittent nasal congestion. No history of chronic sinusitis. No recent URI. OVIDIO ARCHULETA PA-C [address] [place] [address], [place], [address], [place] - [facility] 05/17/2024 12:55:30 OBGyn Episode No OBEpisode recorded.
--- OUTSIDE RECORDS SUMMARY | 2024-08-28 14:19 | XMS_ITS | Encounter Summary ---
Author Organization [facility] Address [address] [place] [address] Care Team Providers Care Rider Ticket Worker Name Role Phone Ruth Lynch Primary Care Provider [phone] Encounter Details Date Type Department Care Team (Late st Contact Info) Description 05/26/2021 myChart Message [facility] [address], [place] [phone] Alex Martinez MD [address] [place] [place], [place] [phone] Scanned test result Social History Tobacco Use Types Packs/Day Years [...] Orientation Straight 04/03/2021 8: 22 AM EST documented as of this encounter Plan of Treatment Not on file documented as of this encounter Visit Diagnoses Not on filedocumented in this encounter Care Teams Rider Ticket Worker Relationship Specialty Start Date End Date Ruth Lynch [address] [place] [id number] PCP - General 07/14/21 documented as of this encounter
--- OUTSIDE RECORDS SUMMARY | 2024-08-28 14:19 | XMS_ITS | Encounter Summary ---
Author Organization [facility] Address [address] [place] [address] Care Team Providers Care Youth Advocate Name Role Phone Ruth Lynch Primary Care Provider [phone] Encounter Details Date Type Department Care Team (Late st Contact Info) Description 06/26/2021 myChart Message [facility] [address] [place], [place] [phone] Alex Martinez MD [address] [place] [address] Still waiting for a response Social History Tobacco Use Types Packs/Day Years [...] on filedocumented in this encounter Care Teams Youth Advocate Relationship Specialty Start Date End Date Ruth Lynch [address] [place] [id number] PCP - General 07/14/21 documented as of this encounter
--- OUTSIDE RECORDS SUMMARY | 2024-08-28 14:19 | XMS_ITS | Clinical Summary ---
Author Organization [facility] Address [address] [place] [phone] Phone Care Team Providers Care Humanities Department Chair Name Role Phone Ruth Lynch DEPARTMENT MANAGER Primary Care Provider [phone] Allergies Active Allergy Reactions Criticality Noted Date Comments Alatrofloxacin High 08/30/2018 Cephalosporins 08/30/2018 Ibuprofen Medium 08/30/2018 Able to tolerate 400mg at a time, this reaction happened with the 600mg dose Morphine High 08/30/2018 Trouble with ariway with morphine, was in hospital when it happened. Penicillins 08/30/2018 Pseudoephedrine 08/30/2018 Sulfate Ion 08/30/2018 Tramadol 08/30/2018 Valacyclovir 08/30/2018 Vancomycin 08/30/2018 Medications filgrastim-aafi (Nivestym) 300 mcg/0.5 mL subcutaneous injection Inject 300 mcg into the skin. 3 Active LORazepam (ATIVAN) 0.5 mg tablet Take 0.5 mg by mouth. Active zolpidem (AMBIEN) 5 mg tablet Take 5 mg by mouth. Active gabapentin (NEURONTIN) 300 mg capsule Take 1 capsule (300 mg total) by mouth 2 (two) times a day. Active omeprazole (PriLOSEC) [address] capsule Take 1 capsule (20 mg total) by mouth 1 (one) time each day. Active Active Problems Problem Noted Date Diagnosed Date Leukopenia 07/19/2021 Osteoporosis 07/19/2021 Encounters Date Type Department Care Team Description 08/21/2024 8:20 AM EDT Office Visit Breast Care [facility] [address] [place] [address] Aline Beltran MD Breast nodule (Primary Dx); Leukopenia, unspecified type 08/17/2024 9:04 AM EDT - 08/17/2024 11:59 PM EDT Hospital Encounter [facility] [address] [place] [address] Encounter for screening mammogram for breast cancer; Encounter for screening mammogram for malignant neoplasm of breast Discharge Disposition: Home or Self Care from Last 3 Months Surgical History Surgery Date Site/Laterality Comments HERNIA REPAIR 2008 PROCEDURE: HISTORICAL HERNIA REPAIR/ING BOWEL RESECTION 2007 PROCEDURE: HISTORICAL BOWEL RESECTION STEREOTACTIC CORE BIOPSY Right Medical History Medical History Date Comments Leukopenia DX:Leukopenia Osteoporosis DX:Osteoporosis Family History Medical History Relation Name Comments Lung cancer Father Relation Name Status Comments Father Social History Tobacco Use Types Packs/Day Years Used Date Smoking Tobacco: Former Cigarettes Q uit: 07/04/1986 Smokeless Tobacco: Never Comments No Sex and Gender Information Value Date Recorded Sex Assigned at Not on file Legal Sex Female 11:43 AM EST Gender Identity Not on file Sexual Orientation Not on file Obstetrics History Para Term AB IAB SAB Ectopic Multiple Livin g Live Births 2 Last Filed Vital Signs Vital Sign Reading Time Taken Comments Blood Pressure 139/87 08/21/2024 8:17 AM EDT Pulse 70 08/21/2024 8:17 AM EDT Temperature 36.7 ??C (98.1 ??F) 08/21/2024 8:17 AM ED T Respiratory Rate - - Oxygen Saturation - - Inhaled Oxygen Concentration - - Weight 54.4 kg (120 lb) 08/17/2024 9:12 AM EDT Height 162.6 cm (5' 4 ) 08/17/2024 9:12 AM EDT Body Mass Index 20.6 08/17/2024 9:12 AM EDT Plan of Treatment Upcoming Encounters Date Type Department Care Team (Late st Contact Info) Description 08/29/2024 11:15 AM EDT Appointment [facility] Ultrasound [address] [place] [address] Health Maintenance Due Date Last Done Comments Pneumococcal Vaccine: 50+ Years (2 of 2 - PCV) 02/11/2010 05/31/2007 Zoster Vaccines (1 of 2) 02/11/2010 Colorectal Cancer Screening: Colonoscopy 03/23/2022 Depression Screening 03/23/2022 HIV Screening 03/23/2022 Hepatitis C Screening 03/23/2022 Social Influencers of Health Screening 03/23/2022 COVID-19 Vaccine ( season) 2023 04/05/2021, 08/14/2020, 07/16/2020 Influenza Vaccine (Season Ended) 2024 03/12/2022, 02/23/2021, 02/02/2020, Additional history exists Breast Cancer Screening 08/17/2026 08/18/19, 08/13/2022, 08/11/2020, Additional history exists DTaP,Tdap,and Td Vaccines (2 - Tdap) 06/14/2027 06/14/2017 Cervical Cancer Screening: HPV 02/06/2029 02/07/2024 Osteoporosis Screening (Bone Density Screening) 08/13/2032 08/13/2022, 08/11/2020 RSV Immunization Adult Patients (1 - 1-dose 75+ series) 02/11/2035 Pneumococcal Vaccine: Pediatrics (0 to 5 Years) and At-Risk Patients (6 to 64 Years) Aged Out 05/31/2007 No longer eligible based on patient's age to complete this topic HIB Vaccines Aged Out No longer eligi ble based on patient's age to complete this topic HPV Vaccines Aged Out No longer eligi ble based on patient's age to complete this topic Hepatitis A Vaccines Aged Out No long er eligible based on patient's age to complete this topic Hepatitis B Vaccines Aged Out No long er eligible based on patient's age to complete this topic IPV Vaccines Aged Out No longer eligi ble based on patient's age to complete this topic MMR Vaccines Aged Out No longer eligi ble based on patient's age to complete this topic Meningococcal ACWY Vaccine Aged Out N o longer eligible based on patient's age to complete this topic Meningococcal B Vaccine Aged Out No l onger eligible based on patient's age to complete this topic RSV Immunization Patients Under 20 months Aged Out No longer eligible based on patient's age to complete this topic Varicella Vaccines Aged Out No longer eligible based on patient's age to complete this topic Procedures Procedure Name Priority Date/Time Associated Diagnosis Comments RBC MORPHOLOGY REVIEW Routine 08/21/2024 9:04 AM EDT Leukopenia, unspecified type CBC WITH AUTO DIFFERENTIAL Routine 08/21/2024 9:04 AM EDT Leukopenia, unspecified type CBC AND DIFFERENTIAL Routine 08/21/2024 9:04 AM EDT Leukopenia, unspecified type MG MAMMO DIGITAL SCREENING W COLT BILAT Routine 08/17/2024 9:20 AM EDT Encounter for screening mammogram for breast cancer HM HPV Routine 02/07/2024 JESSA DEXA AXIAL SKELETON Routine 08/13/2022 10:31 AM EDT Encounter for screening for osteoporosis from Last 3 Months or Most Recently Relevant to Health Maintenance Results * (ABNORMAL) RBC morphology review (08/21/2024 9:04 AM EDT) Rbc Morphology Consistent with indices Consistent with indices, Normal for [place] LAB HEMETOLOGY METHOD 08/21/2024 1:28 PM EDT [facility] Platelet Morphology - WAM See Note(A) Normal LAB HEMETOLOGY METHOD 08/21/2024 1:28 PM EDT [facility] Comment:PLT: Normal Blood Venous blood specimen / Unknown Venipuncture / Unknown 08/21/2024 9:04 AM EDT 08/21/2024 11:38 AM EDT us Aline Beltran MD LAB BLOOD ORDERABLES Final Resul t [facility] [address] [place] [address], * (ABNORMAL) CBC auto differential (08/21/2024 9:04 AM EDT) WBC 2.0(L) 4.8 - 10.8 K/mcL LAB HEMETOLOGY METHOD 08/21/2024 1:28 PM [facility] RBC 4.60 3.80 - 4.80 M/mcL LAB HEMETOLOGY METHOD 08/21/2024 1:28 PM [facility] Hemoglobin 13.9 11.5 - 16.0 g/dL LAB HEMETOLOGY METHOD 08/21/2024 1:28 PM [facility] Hematocrit 42.4 35.0 - 47.0 % LAB HEMETOLOGY METHOD 08/21/2024 1:28 PM [facility] MCV 92.2 79.0 - 98.0 FL LAB HEMETOLOGY METHOD 08/21/2024 1:28 PM [facility] MCH 30.2 27.0 - 32.0 pcg LAB HEMETOLOGY METHOD 08/21/2024 1:28 PM [facility] MCHC 32.8 32.0 - 37.0 g/dL LAB HEMETOLOGY METHOD 08/21/2024 1:28 PM [facility] RDW 13.2 11.0 - 15.0 % LAB HEMETOLOGY METHOD 08/21/2024 1:28 PM [facility] Platelets 273 130 - 400 K/mcL LAB HEMETOLOGY METHOD 08/21/2024 1:28 PM [facility] MPV 9.2 7.0 - 11.0 FL LAB HEMETOLOGY METHOD 08/21/2024 1:28 PM [facility] NRBC 0.0 <1.0 % LAB HEMETOLOGY METHOD 08/21/2024 1:28 PM [facility] NRBC Absolute 0.00 <0.10 K/mcL LAB HEMETOLOGY METHOD 08/21/2024 1:28 PM [facility] Neutrophils Relative 16.6 % LAB HEMETOLOGY METHOD 08/21/2024 1:28 PM EDT [facility] Comment:This is an appended report. These results have been appended to a previously preliminary verified report. Lymphocytes Relative 61.3 % LAB HEMETOLOGY METHOD 08/21/2024 1:28 PM T [facility] Comment:This is an appended report. These results have been appended to a previously preliminary verified report. Monocytes Relative 21.1 % LAB HEMETOLOGY METHOD 08/21/2024 1:28 PM EDT [facility] Comment:This is an appended report. These results have been appended to a previously preliminary verified report. Eosinophils Relative 0.0 % LAB HEMETOLOGY METHOD 08/21/2024 1:28 PM [facility] Comment:This is an appended report. These results have been appended to a previously preliminary verified report. Basophils Relative 1.0 % LAB HEMETOLOGY METHOD 08/21/2024 1:28 PM T [facility] Comment:This is an appended report. These results have been appended to a previously preliminary verified report. Immature Granulocytes Relative 0.0 % LAB HEMETOLOGY METHOD 08/21/2024 1:28 PM EDT [facility] Comment:This is an appended report. These results have been appended to a previously preliminary verified report. Neutrophils Absolute 0.33(L) 1.50 - 7.00 K/mcL LAB HEMETOLOGY METHOD 08/21/2024 1:28 PM T [facility] Comment:This is an appended report. These results have been appended to a previously preliminary verified report. Lymphocytes Absolute 1.22 1.00 - 5.00 K/mcL LAB HEMETOLOGY METHOD 08/21/2024 1:28 PM [facility] Comment:This is an appended report. These results have been appended to a previously preliminary verified report. Monocytes Absolute 0.42 0.20 - 1.00 K/mcL LAB HEMETOLOGY METHOD 08/21/2024 1:28 PM EDT [facility] Comment:This is an appended report. These results have been appended to a previously preliminary verified report. Eosinophils Absolute 0.00 0.00 - 0.50 K/[facility] HEMETOLOGY METHOD 08/21/2024 1:28 PM EDT [facility] Comment:This is an appended report. These results have been appended to a previously preliminary verified report. Basophils Absolute 0.02 0.00 - 0.20 K/[facility] HEMETOLOGY METHOD 08/21/2024 1:28 PM EDT [facility] Comment:This is an appended report. These results have been appended to a previously preliminary verified report. Immature Granulocytes Absolute 0.00 0.00 - 0.03 [facility] 08/21/2024 1:28 PM EDT [facility] Comment:This is an appended report. These results have been appended to a previously preliminary verified report. Blood Venous blood specimen / Unknown Venipuncture / Unknown 08/21/2024 9:04 AM EDT 08/21/2024 11:38 AM EDT us Aline Beltran MD LAB BLOOD ORDERABLES Final Resul t [facility] [address] [place] [address], * (ABNORMAL) MG Mammo Digital Screening w Colt bilat (08/17/2024 9:20 AM EDT) Anatomical Region Laterality Modality Breast Bilateral Mammography 08/17/2024 9:25 AM EDT Impressions 08/17/2024 9:36 AM EDT 2 oval nodular densities are present the left breast retroareolar region, measuring 7.0 mm and 5.5 mm diameter, respectively further evaluation with ultrasound is recommended. ??There is no mammographic evidence of malignancy in the right breast. BI-RADS CATEGORY: 0 - INCOMPLETE - NEED ADDITIONAL IMAGING EVALUATION RECOMMENDATION: Ultrasound is recommended for the Left Breast. Mammo Location: [facility], [facility], [address] [place] [address] -------- FINAL REPORT -------- Dictated By: Derek Esquivel Dictated Date: 08/17/2024 09:25 ET Assigned Physician: Derek Esquivel Reviewed and Electronically Signed By: Derek Esquivel Signed Date: 08/17/2024 09:36 ET Workstation ID: [id number] Transcribed By: Self Edit Transcribed Date: 08/17/2024 09:25 ET Narrative 08/17/2024 9:36 AM EDT CLINICAL: The patient is a 64 years Female presenting for routine screening mammography. COMPARISON: Most recently 08/15/2023 and most remotely 06/14/2018. ?? TECHNIQUE: Full-field digital mammography of the breasts bilaterally consisting of tomosynthesis in MLO and CC projection is performed in the [employer] 2000-D unit. ??Computer aided detection utilizing the iCAD system was utilized. FINDINGS: The breasts are seen to be composed of a combination of fatty and fibroglandular elements. ??Tissue markers are again seen anteriorly in each breast. ??In the left breast retroareolar region, there are 2 masslike oval nodular densities measuring 7.0 mm and 5.5 mm in diameter, respectively. ??These are seen to best advantage on thin slice MLO tomographic image 29/58. ??No mass is seen in the left breast. ??There is no cluster of microcalcifications, skin thickening, or nipple retraction. TISSUE DENSITY: There are scattered areas of fibroglandular density. (BI-RADS category B) Procedure Note Derek Esquivel MD - 08/17/2024 CLINICAL: The patient is a 64 years Female presenting for routinescreening mammography. COMPARISON: Most recently 08/15/2023 and most remotely 06/14/2018. TECHNIQUE: Full-field digital mammography of the breasts bilaterallyconsisting of tomosynthesis in MLO and CC projection is performed in the[employer] 2000-D unit. Computer aided detection utilizing the iCADsystem was utilized. FINDINGS: The breasts are seen to be composed of a combination of fattyand fibroglandular elements. Tissue markers are again seen anteriorly ineach breast. In the left breast retroareolar region, there are 2 masslikeoval nodular densities measuring 7.0 mm and 5.5 mm in diameter,respectively. These are seen to best advantage on thin slice MLOtomographic image 29/58. No mass is seen in the left breast. There is nocluster of microcalcifications, skin thickening, or nipple retraction. TISSUE DENSITY: There are scattered areas of fibroglandular density.(BI-RADS category B) IMPRESSION: 2 oval nodular densities are present the left breast retroareolar region,measuring 7.0 mm and 5.5 mm diameter, respectively further evaluation withultrasound is recommended. There is no mammographic evidence ofmalignancy in the right breast. BI-RADS CATEGORY: 0 - INCOMPLETE - NEED ADDITIONAL IMAGING EVALUATION RECOMMENDATION: Ultrasound is recommended for the Left Breast. Mammo Location: [facility], [facility], [address] [place] [id number] -------- FINAL REPORT -------- Dictated By: Derek Esquivel Dictated Date: 08/17/2024 09:25 ET Assigned Physician: Derek Esquivel Reviewed and Electronically Signed By: Derek Esquivel Signed Date: 08/17/2024 09:36 ET Workstation ID: [id number] Transcribed By: Self Edit Transcribed Date: 08/17/2024 09:25 ET us Self Referral Sppl IMG BI PROCEDURES Final Resul t * Cervical Cancer Screening: HPV (02/07/2024) Pathologist [facility] Cervical Cancer Screening: HPV Abstracted, Negative us Historical Provider HEALTH MAINTENANCE Final Result * JESSA DEXA AXIAL SKELETON (08/13/2022 10:31 AM EDT) Anatomical Region Laterality Modality Mammography 08/13/2022 8:39 AM EDT Narrative 08/13/2022 10:31 AM EDT [facility] Diagnostic Imaging Department [address] [place] [id number] Patient: ??RASHMI CARDENAS ?/Age/Sex: 1960 - 62 - F Unit#: ??[id number] ? Location/Status: ??SPDIMAM/REG CLI ? Mnemonic/Ordering Site: ??MAMDEXAAX/SPMAM Ordering Physician: ??ELSA LANDRY MD Jessa Dexa Axial Skeleton - 08/13/22 - 1020 HISTORY: ??The patient is a 62-year-old postmenopausal female with clinical concern for metabolic bone disease. FINDINGS: ??Dual energy x-ray absorptiometry of the lumbar spine and femurs is performed. The mean bone mineral density at L1-L4 is 0.789 gm/cm2 which is 67% of that of young normals and 82% of that of age matched controls. This yields a T-score of -3.3 and a Z-score of -1.5 which is diagnostic of osteoporosis. The mean bone mineral density of the femurs bilaterally is 0.717 gm/cm2 which is 71% of that of young normals and 85% of that of age matched controls. ??This yields a T-score of -2.3 and a Z-score of -1.0 which is diagnostic of osteopenia. ??However, the T-score of the left femoral neck is -2.5 which is diagnostic of osteoporosis. IMPRESSION: 1. Osteoporosis. ??There has been a decrease of 4.8% in bone mineral density in the lumbar spine since the prior examination of 08/11/2020. ??There has been a decrease of 12.5% in bone mineral density in the right femur and a decrease of 6.5% in bone mineral density in the left femur. 2. FRAX analysis yields a 10-year probability of major osteoporotic fracture of 10.0% and a 10-year probability of hip fracture of 1.8%. Code 94601 Dictating Physician: ??DEREK ESQUIVEL MD Electronically Signed by: ??DEREK ESQUIVEL MD Dic Date/Time: ??08/13/22 1030 Sign date/Time: ??08/13/22 1031 Procedure Note Derek Esquivel MD - 05/27/2023 [facility] Diagnostic Imaging Department [address] [place] [address] Patient: RASHMI CARDENAS FRANCINE PattonB./Age/Sex: 1960 - 62 - F Unit#: [id number] Location/Status: [facility] Mnemonic/Ordering Site: [facility] Ordering Physician: ELSA ALNDRY MD [facility] Dexa Axial Skeleton - 08/13/220 HISTORY: The patient is a 62-year-old postmenopausal female withclinical concern for metabolic bone disease. FINDINGS: Dual energy x-ray absorptiometry of the lumbar spine and femursis performed. The mean bone mineral density at L1-L4 is 0.789 gm/cm2 which is67% of that of young normals and 82% of that of age matched controls. Thisyields a T-score of -3.3 and a Z-score of -1.5 which is diagnostic ofosteoporosis. The mean bone mineral density of the femurs bilaterally is 0.717 gm/xu6swczb is 71% of that of young normals and 85% of that of age matched controls.This yields a T-score of -2.3 and a Z-score of -1.0 which is diagnostic of osteopenia. However, the T-score of the left femoral neck is -2.5 whichis diagnostic of osteoporosis. IMPRESSION: 1. Osteoporosis. There has been a decrease of 4.8% in bone mineraldensity in the lumbar spine since the prior examination of 08/11/2020. There has mc decrease of 12.5% in bone mineral density in the right femur and adecrease of 6.5% in bone mineral density in the left femur. 2. FRAX analysis yields a 10-year probability of major osteoporoticfracture of 10.0% and a 10-year probability of hip fracture of 1.8%. Code 85053 Dictating Physician: DEREK ESQUIVEL MD Electronically Signed by: DEREK ESQUIVEL MD Dic Date/Time: 08/13/22 1030 Sign date/Time: 08/13/22 1031 Elsa Landry MD IM BI PROCEDURES Final Resul t from Last 3 Months or Most Recently Relevant to Health [place] [address] [facility] Care Teams Humanities Department Chair Relationship Specialty Start Date End Date Ruth Lynch NP [address] [facility] [place] [address] PCP - General Family Medicine 08/30/18
--- OUTSIDE RECORDS SUMMARY | 2024-08-28 14:19 | XMS_ITS | Encounter Summary ---
Author Organization [facility] Address [address] [place] [address] Care Team Providers Care Buckle Stapler Name Role Phone Ruth Lynch Primary Care Provider [phone] Reason for Visit * Reason Onset Date Comments Appointment 03/24/2021 Encounter Details Date Type Department Care Team (Late st Contact Info) Description 03/24/2021 Telephone [facility] [address] [place] [address] [phone] Telephone Intake, Staff Appointment Social History Tobacco Use Types Packs/Day Years Used Date Smoking Tobacco: Never Assessed Comments Unknown Sex and Gender Information Value Date Recorded Sex Assigned at Female 04/03/2021 8:22 AM EST Legal Sex Female 4:36 PM EST Gender Identity Female 04/03/2021 8:22 AM EST Sexual Orientation Straight 04/03/2021 8: 22 AM EST documented as of this encounter Miscellaneous Notes * Telephone Encounter - Aleah Brumfield - 03/25/2021 8:45 AM EST Spoke to patient and schedule apt for 04/03/2021 At [address] Castillo * Telephone Encounter - Raymon Layton - 03/24/2021 12:09 PM EST Pt is returning a call that was missed. Pt says her 04/21/21 appointment was cancelled and was offered 04/03/21. Pt would like to accept the appointment. I cannot see that appointment Im assuming itson hold. Pt can be reached at [phone]. Pt cannot answer please leave a voicemail confirming the 04/03/21 date. documented in this encounter Plan of Treatment Not on file documented as of this encounter Visit Diagnoses Not on filedocumented in this encounter Care Teams Buckle Stapler Relationship Specialty Start Date End Date Ruth Lynch [address] [place] [id number] PCP - General 07/14/21 documented as of this encounter
--- OUTSIDE RECORDS SUMMARY | 2024-08-28 14:19 | XMS_ITS | Encounter Summary ---
Author Organization [facility] Address [address] [place] [address] Care Team Providers Care Patient Support Specialist Name Role Phone Ruth Lynch Primary Care Provider [phone] Encounter Details Date Type Department Care Team (Late st Contact Info) Description 06/17/2021 myChart Message [facility] [address] [place], [place] [phone] Alex Martinez MD [address] [place] [address] Doctors advice Social History Tobacco Use Types Packs/Day Years [...] on filedocumented in this encounter Care Teams Patient Support Specialist Relationship Specialty Start Date End Date Ruth Lynch [address] [place] [id number] PCP - General 07/14/21 documented as of this encounter
--- OUTSIDE RECORDS SUMMARY | 2024-08-28 14:19 | XMS_ITS | Encounter Summary ---
Author Organization [facility] Address [address] [place] [address] Care Team Providers Care Cathode Maker Name Role Phone Ruth Lynch Primary Care Provider [phone] Reason for Visit * Reason Onset Date Comments Appointment 03/05/2021 Encounter Details Date Type Department Care Team (Late st Contact Info) Description 03/05/2021 Telephone [facility] Central Scheduling Department [address] [place] [phone] Telephone Intake, Staff Appointment Social History Tobacco [...] encounter Miscellaneous Notes * Telephone Encounter - Breana Neville - 03/05/2021 4:51 PM EST Millie toney [facility] called to schedule new GI pt appt Pt was not in [facility] system and we began registering pt but Millie couldn't provide all insurance information Millie will call back once she reaches pt and receives pertinent insurance information documented in this encounter Plan of Treatment Not on file documented as of this encounter Visit Diagnoses Not on filedocumented in this encounter Care Teams Cathode Maker Relationship Specialty Start Date End Date Ruth Lynch [address] [place] [id number] PCP - General 07/14/21 documented as of this encounter
--- OUTSIDE RECORDS SUMMARY | 2024-08-28 14:19 | XMS_ITS | Encounter Summary ---
Author Organization [facility] Address [address] [place] [address] Care Team Providers Care Customer Technical Services Manager Name Role Phone Ruth Lynch Primary Care Provider [phone] Encounter Details Date Type Department Care Team (Late st Contact Info) Description 08/11/2021 myChart Message [facility] [address] [place] [address] Alex Martinez MD [address] [place] [address] Update Social History Tobacco Use Types Packs/Day Years [...] on filedocumented in this encounter Care Teams Customer Technical Services Manager Relationship Specialty Start Date End Date Ruth Lynch [address] [place] [phone] PCP - General 07/14/21 documented as of this encounter
--- OUTSIDE RECORDS SUMMARY | 2024-08-28 14:19 | XMS_ITS | Clinical Summary ---
Author Organization [facility] Address [address] [place] [address] Care Team Providers Care Speech Communication Instructor Name Role Phone SyedDuyenRuth Rossy MARINE UNDERWRITER Primary Care Provider Allergies Active Allergy Reactions Criticality Noted Date Comments Cefuroxime 08/30/2018 Cephalosporins 08/30/2018 Morphine High 08/30/2018 Trouble with ariway with morphine, was in hospital when it happened. Ibuprofen Medium 08/30/2018 Able to tolerate 400mg at a time, this reaction happened with the 600mg dose Penicillins 08/30/2018 Pseudoephedrine 08/30/2018 Sulfate 08/30/2018 Alatrofloxacin High 08/30/2018 Tramadol 08/30/2018 Valacyclovir 08/30/2018 Vancomycin 08/30/2018 Medications Medication Sig Dispensed Refills Start Date End Date Status zolpidem (AMBIEN) 5 MG tablet Take 1 tablet (5 mg total) by mouth every night at bedtime as needed for sleep. 0 Active LORazepam (ATIVAN) 0.5 MG tablet Take 1 tablet (0.5 mg total) by mouth every 6 (six) hours as needed. 0 Active Filgrastim-aafi (Nivestym) 300 MCG/0.5ML SOSYIndications:Neutro penia, unspecified type (HCC) Inject 300 mcg under the skin daily. 2 times per week for 4 weeks 15.82 mL 6 06/07/2022 Active Active Problems Problem Noted Date Diagnosed Date Neutropenia 11/17/2018 Social History Tobacco Use Types Packs/Day Years Used Date Smoking Tobacco: Former Smokeless Tobacco: Never Sex and Gender Information Value Date Recorded Sex Assigned at Not on file Gender Identity Not on file Sexual Orientation Not on file Job Start Date Occupation Industry Not on file Not on file Not on file Last Filed Vital Signs Vital Sign Reading Time Taken Comments Blood Pressure 157/87 06/15/2023 3:18 PM EST Pulse 70 06/15/2023 3:18 PM EST Temperature 37.1 ??C (98.8 ??F) 06/15/2023 3:18 PM ES T Respiratory Rate - - Oxygen Saturation 100% 06/15/2023 3:18 PM EST Inhaled Oxygen Concentration - - Weight 55.3 kg (122 lb) 06/15/2023 3:18 PM EST Height 165.1 cm (5' 5 ) 03/09/2022 3:38 PM EST Body Mass Index 20.3 03/09/2022 3:38 PM EST Plan of Treatment Health Maintenance Due Date Last Done Comments Hepatitis C Screening 1960 COVID-19 Vaccine (#1) 1960 Depression Screening 1972 Preventative Health Evaluation 02/11/1978 DTap / Tdap / Td (1 - Tdap) 02/11/1979 Cervical Cancer Screening (Pap Smear) 02/11/1981 Colon Cancer Screening (Colonoscopy) 02/11/2005 Breast Cancer Screening (Mammogram) 02/11/2010 Shingrix-Zoster Vaccine (1 of 2) 02/11/2010 Influenza Vaccine (#1) 2023 2, 02/23/2021, 05/03/2019, Additional history exists Pneumococcal Vaccine (2 of 2 - PCV) 02/11/2025 05/31/2007 RSV Adult > 60+ Yrs or (1 - 1-dose 75+ series) 02/11/2035 Pneumococcal Vaccine Aged Out 05/31/2007 No long er eligible based on patient's age to complete this topic Hepatitis B Vaccines Aged Out No long er eligible based on patient's age to complete this topic RSV Ped < 20 months Aged Out No longe r eligible based on patient's age to complete this topic Care Teams Speech Communication Instructor Relationship Specialty Start Date End Date Ruth Lynch NP [address] [facility] Adult Med David Farias [place] [id number] PCP - General Family Medicine 08/30/18
--- OUTSIDE RECORDS SUMMARY | 2024-08-28 14:19 | XMS_ITS | Encounter Summary ---
Author Organization [facility] Address [address] [place] [address] Care Team Providers Care Plastic Tile Setter Name Role Phone Ruth Lynch Primary Care Provider [phone] Encounter Details Date Type Department Care Team (Late st Contact Info) Description 04/04/2021 myChart Message [facility] [address], [place] [phone] Alex Martinez MD [address] [place], [place] [id number] Summary was sent to wrong doctor Social History Tobacco Use Types Packs/Day Years [...] on filedocumented in this encounter Care Teams Plastic Tile Setter Relationship Specialty Start Date End Date Ruth Lynch [address] [place] [id number] PCP - General 07/14/21 documented as of this encounter
--- OUTSIDE RECORDS SUMMARY | 2024-08-28 14:19 | XMS_ITS | Encounter Summary ---
Author Organization [facility] Address [address] [place] [id number] Care Team Providers Care Ragman Name Role Phone Ruth Lynch Primary Care Provider [phone] Encounter Details Date Type Department Care Team (Late st Contact Info) Description 04/03/2021 Orders Only [facility] [address] [place] [id number] Provider, Angela, [address] [place] [id number] Social History Tobacco Use Types Packs/Day Years [...] on file documented as of this encounter Procedures * Due to [place] state law, this organization might not be sharing negative HIV tests. Procedure Name Priority Date/Time Associated Diagnosis Comments AMB EXTERNAL XR HIP, OUTSIDE RESULT Routine 04/03/2021 LAB - SCANNED Routine 04/03/2021 AMB EXTERNAL MRI HIP, OUTSID E RESULT Routine 02/24/2021 AMB EXTERNAL EMG, OUTSIDE RESULT Routine 11/18/2020 CBC, OUTSIDE LAB Routine 11/18/2020 AMB EXTERNAL MRI LUMBAR SPIN E, OUTSIDE RESULT Routine 09/11/2020 AMB EXTERNAL XR SPINE, OUTSI DE RESULT Routine 08/25/2020 HM DEXA SCAN Routine 08/11/2020 documented in this encounter Results * Due to [place] state law, this organization might not be sharing negative HIV tests. * LAB - SCANNED (04/03/2021) us Unknown Provider LAB HISTORICAL RESULTS Final Result * XR Hip, Outside Result (04/03/2021) Anatomical Region Laterality Modality Other us Unknown Provider AMB EXTERNAL RESULT PROCEDUR ES Final Result * MRI Hip, Outside Result (02/24/2021) Anatomical Region Laterality Modality Other us Unknown Provider AMB EXTERNAL RESULT PROCEDUR ES Final Result * CBC, Outside Lab (11/18/2020) Blood Structure of peripheral vein / Unknown us Unknown Provider LAB BLOOD ORDERABLES Final R esult * Electromyography, Outside Result (11/18/2020) Anatomical Region Laterality Modality Other us Unknown Provider AMB EXTERNAL RESULT PROCEDUR ES Final Result * MRI Lumbar Spine, Outside Result (09/11/2020) Anatomical Region Laterality Modality Other us Unknown Provider AMB EXTERNAL RESULT PROCEDUR ES Final Result * XR Spine, Outside Result (08/25/2020) Anatomical Region Laterality Modality Other us Unknown Provider AMB EXTERNAL RESULT PROCEDUR ES Final Result * HM Dexa Scan (08/11/2020) Anatomical Region Laterality Modality Other us Unknown Provider HEALTH MAINTENANCE Final Res ult documented in this encounter Visit Diagnoses Not on filedocumented in this encounter Care Teams Ragman Relationship Specialty Start Date End Date Ruth Lynch [address] [place] [id number] PCP - General 07/14/21 documented as of this encounter
[2024-08-28 14:23] VITALS: BP 145/84; PULSE 71
[2024-08-28 14:24] VITALS: BP 171/97; PULSE 72
[2024-08-28 14:25] VITALS: BP 176/98; PULSE 77
[2024-08-28 14:38] LABS: Basophils Percent Auto 1.1 % (0-2); Hematocrit 43.2 % (37.0-47.0); Hemoglobin 14.6 g/dl (12.0-16.0); Lymphocytes Absolute Auto 1.1 X10*3/uL (1.2-4.9); Lymphocytes Percent Auto 59.5 % (20-40); MANUAL DIFF FLAG SCAN; Mean Corpuscular HGB Conc 33.8 g/dl (31.0-35.0); Mean Corpuscular Hemoglobin 30.6 pg (27.0-33.0); Mean Corpuscular Volume 90.6 fL (80.0-98.0); Mean Platelet Volume 8.6 fL (9.4-12.3); Monocytes Absolute Auto 0.4 X10*3/uL (0.1-1.2); Monocytes Percent Auto 20.5 % (2-11); Neutrophils Absolute Auto 0.4 x10*3/uL (2.0-8.3); Neutrophils Percent Auto 18.9 % (45-73); Platelet Count 237 X10*3/uL (160-400); Red Blood Count 4.77 X10*6/uL (4.20-5.50); Red Cell Distribution Width 13.1 % (11.0-16.0); SCAN SMEAR FLAG 1
[2024-08-28 14:42] LABS: White Blood Count 1.9 X10*3/uL (4.8-10.8)
[2024-08-28 14:56] LABS: SLIDE REVIEW VERIFIED
[2024-08-28 15:01] LABS: Alanine Aminotransferase 18 U/L (0-31); Albumin Level 4.5 g/dL (3.5-5.0); Anion Gap 13 (12-20); Aspartate Amino Transferase 48 U/L (5-31); Bilirubin Total 0.7 mg/dL (0.0-1.0); Blood Urea Nitrogen 15 mg/dL (9-16); C Reactive Protein 0.17 mg/dL (< or = 0.50); Calcium 9.7 mg/dL (8.4-10.2); Carbon Dioxide 25 mmol/L (22-29); Chloride 107 mmol/L (96-108); Creatinine Clr Calc Pharmacy 77.9; Estimated Glomerular Filt Rate > 60; Glucose Random 85 mg/dL (60-115); Magnesium 2.3 mg/dL (1.6-2.6); Potassium 3.8 mmol/L (3.3-5.1); Sodium 141 mmol/L (135-145); Total Protein 8.3 g/dL (6.5-8.0)
[2024-08-28 15:19] LABS: Erythrocyte Sedimentation Rate 22 MM/HR (0-20)
[2024-08-28] MEDS: diazePAM 5 MG TABLET PO (17:09)
[2024-08-28 17:46] VITALS: BP 133/91; PULSE 73; RESP 16; TEMP 36.3; O2SAT 98
[2024-08-28 17:59] LABS: Alkaline Phosphatase 82 U/L (39-117)
[2024-08-28 18:07] VITALS: BP 133/91; PULSE 73; RESP 16; TEMP 36.3; O2SAT 98
== END 2024-08-28 18:11 | disposition home or self-care (01) ==
PROVIDERS: Physician Assistant Medical; Emergency Provider Emergency Medicine Emergency Medical Services; PCP Nurse Practitioner Family
DX: R51.9 Headache, unspecified (principal); R42 Dizziness and giddiness; H93.A9 Pulsatile tinnitus, unspecified ear; M79.2 Neuralgia and neuritis, unspecified; Z79.899 Other long term (current) drug therapy
CPT/HCPCS: 36415; 70496; 70498; 80053; 83735; 85025; 85652; 86140; 93005; 99284

== ENCOUNTER → 2024-08-28 13:48 | Outpatient (BNV) | payer BC, SELFPAY | PROVIDERS: Emergency Provider Emergency Medicine Emergency Medical Services; PCP Nurse Practitioner Family; Visit Provider Internal Medicine | DX: R42 Dizziness and giddiness (principal) | CPT/HCPCS: 93010 ==

== ENCOUNTER → 2024-08-28 13:48 | Outpatient (BNV) | payer BC, SELFPAY | PROVIDERS: Emergency Provider Emergency Medicine Emergency Medical Services; PCP Nurse Practitioner Family; Visit Provider Radiology Diagnostic Radiology | DX: R51.9 Headache, unspecified (principal); R42 Dizziness and giddiness | CPT/HCPCS: 70496; 70498 ==